=== PATIENT | female | born 1945 | race Caucasian/White ===

== ENCOUNTER 2020-01-13 16:47 | Emergency (ER) | payer MEDICARE, BC, SELFPAY ==
[2020-01-13 17:01] VITALS: BP 154/94; PULSE 123; RESP 20; O2SAT 99
--- NOTE | 2020-01-13 17:08 | ED.EAR ---
HPI - Ear Problem General Chief complaint: Ear Stated complaint: ears ringing Time Seen by Provider: 01/13/20 17:08 Source: patient and RN notes reviewed Mode of arrival: ambulatory Limitations: no limitations History of Present Illness HPI Narrative: 74-year-old female presents with concern for tinnitus bilaterally. Reports it worsened 2 hours ago while she was carrying groceries up and down the steps. Reports she felt hot and then had worsening ringing in her ears. Reports she has had ringing in her ears for a long time . She denies any ear pain, ear drainage, decreased hearing, nasal congestion, rhinorrhea, fever, cough, shortness of breath. She is concerned her tinnitus is related to high blood pressure. Reports she has been off her high blood pressure medicine per her doctor because the medicine made her blood pressure too low. Reports she tried calling her doctor today and was unable to get an appointment. MD Complaint: other (Tinnitus) Related Data Home Medications Medication Instructions Recorded Confirmed levothyroxine 01/13/20 simvastatin mg 01/13/20 Allergies Allergy/AdvReac Type Severity Reaction Status Date / Time ciprofloxacin Allergy Severe Swelling Verified 03/02/19 15:22 nitrofurantoin Allergy Unknown RASH Verified 12/01/17 16:34 Review of Systems Review of Systems: Narrative: CONSTITUTIONAL: Denies malaise, chills, sweats, or fever. EYES: Denies visual changes, redness, or discharge. ENT: Denies rhinorrhea, congestion, sinus pain, otalgia or sore throat. Reports bilateral tinnitus CARDIOVASCULAR: Denies chest pain, palpitations, or edema. RESPIRATORY: Denies cough or dyspnea. MUSCULOSKELETAL: Denies myalgia. NEUROLOGIC: Denies numbness, weakness, or headache. All systems reviewed & are unremarkable except as noted in HPI and below PMFSH Comments At time of signature, agree with nursing past medical, surgical, social and family history. There is no relevant family history pertinent to the presenting complaint Exam Narrative: Exam Narrative: GENERAL: Well-appearing, well-nourished, and in no acute distress. HEAD: Normocephalic, atraumatic. EYES: PERRLA, conjunctivae clear, and EOMI. No nystagmus. ENT: Nares clear, turbinates pink, no rhinorrhea or epistaxis. Mucous membranes moist. TM pearly garvey with sharp light reflex bilaterally; no tragal tenderness. Oropharynx without erythema or lesions. Tonsils not enlarged and without exudate. Negative Rinne & Pearce test NECK: Supple. CHEST: No respiratory distress. Clear to auscultation. No bony deformities, no asymmetry. Speaks in full sentences. HEART: Regular rate and rhythm. No murmur heard. SKIN: Warm, dry, no rash. NEURO: Alert and oriented x3. No focal deficits. PSYCH: Normal mood and affect Course Course Emergency Course: Patient is aware of diagnosis, understands and agrees to treatment plan. Anticipatory guidance given. Patient agrees to follow-up as directed and is aware of reasons to seek care at the emergency department. Portions of this record may have been created with voice recognition software Vital Signs Vital signs: Vital Signs Pulse Rate 123 H 01/13/20 17:01 Respiratory Rate 20 01/13/20 17:01 Blood Pressure 154/94 H 01/13/20 17:01 Pulse Oximetry 99 01/13/20 17:01 Pulse Rate 123 H 01/13/20 17:01 Respiratory Rate 20 01/13/20 17:01 Blood Pressure 154/94 H 01/13/20 17:01 Pulse Oximetry 99 01/13/20 17:01 Reviewed. Patient has history of hypertension Medical Decision Making MDM Narrative Medical decision making narrative: Exam findings show no acute concerns or changes; patient is non-toxic appearing and is in no distress. Patient is appropriate for outpatient treatment and follow-up. Vital Signs Vital Signs: Vital Signs Pulse Rate 123 H 01/13/20 17:01 Respiratory Rate 20 01/13/20 17:01 Blood Pressure 154/94 H 01/13/20 17:01 Pulse Oximetry 99 01/13/20 17:01 Pulse Rate 123
== END 2020-01-13 17:31 | disposition home or self-care (01) ==
PROVIDERS: Emergency Provider Nurse Practitioner; PCP Family Medicine
DX: H93.13 Tinnitus, bilateral (principal); E78.00 Pure hypercholesterolemia, unspecified; E03.9 Hypothyroidism, unspecified
CPT/HCPCS: 99211; G0463

== ENCOUNTER 2020-02-10 12:10 | Outpatient (CLI) | payer MEDICARE, BC, SELFPAY ==
--- NOTE | ~2020-02-10 | MMUS_ITS ---
EXAMINATION: MM diagnostic marciano RT w kurtis, US breast RT limited HISTORY: Follow-up right breast asymmetries and calcifications TECHNIQUE: Additional 3-D tomosynthesis images of the right breast were performed and synthetic 2-D i mages were generated. CAD analysis was submitted and interpreted. High resolution right breast ultras ound was performed. COMPARISON: Comparison to multiple prior studies sequentially, with oldest reviewed study dated 12/23. FINDINGS: MAMMOGRAPHIC FINDINGS: The breasts are heterogenously dense, which may obscure small masses. There are multiple nodular dens ities in the periareolar location of the right breast which are obscured by dense fibroglandular tiss ue. There are multiple punctate calcifications in the periareolar region, many of which appear to lay er on the medial lateral view, consistent with benign milk of calcium. ULTRASOUND: Right breast ultrasound: There are multiple cysts in the periareolar location of the right breast, largest measuring 9 mm at 1 2:00. There is a 7 mm cyst at 9:00 and a 4 mm cyst at 12:00 in the periareolar location. There are mu ltiple mildly prominent ducts in this region. No suspicious masses to suggest malignancy. IMPRESSION: 1. No evidence for malignancy in the right breast. Benign findings. 2. Routine yearly screening mammogram and regular clinical breast examination are recommended. BI-RADS Category 2: Benign finding(s). Reviewed, dictated and finalized at location A. IMPRESSION: 1. No evidence for malignancy in the right breast. Benign findings. 2. Routine yearly screening mammogram and regular clinical breast examination a re recommended. BI-RADS Category 2: Benign finding(s).
== END 2020-02-10 12:11 | disposition home or self-care (01) ==
LOC: ANHIMG 12:12
PROVIDERS: PCP Family Medicine; Visit Provider Family Medicine
DX: R92.8 Other abnormal and inconclusive findings on diagnostic imaging of breast (principal)
CPT/HCPCS: 76642; 77061; 77065; G0279

== ENCOUNTER → 2020-12-14 09:34 | Outpatient (CLI) | payer MEDICARE, BC, SELFPAY ==
--- NOTE | ~2020-12-14 | MMUS_ITS ---
EXAMINATION: MM diagnostic marciano BI w kurtis, US breast BI complete HISTORY: Left nipple discharge TECHNIQUE: Additional 3-D tomosynthesis images of the breasts were performed and synthetic 2-D images were generated. CAD analysis was submitted and interpreted. High resolution complete bilateral breas t ultrasound was performed. COMPARISON: Comparison to multiple prior studies sequentially, with oldest reviewed study dated 12/23. BREAST PARENCHYMAL COMPOSITION: The breasts are heterogenously dense, which may obscure small masses FINDINGS: MAMMOGRAPHIC FINDINGS: There is a cluster of indeterminate calcifications in the upper outer quadrant of the left breast whi ch may be slightly more prominent in number and size than prior examination, although this could be r elated to technique. There are no new masses or architectural distortion in either breast. No mammogr aphic evidence for malignancy in the left breast. Bilateral breast asymmetries are stable. ULTRASOUND: Complete bilateral breast ultrasound including all 4 quadrants: There are multiple simple and complic ated cysts scattered throughout both breasts, largest on the right measuring 5 mm in largest on the l eft measuring 1 cm. No suspicious sonographic masses to suggest malignancy IMPRESSION: 1. Probable benign cluster of calcifications upper outer quadrant of the right breast. No evidence fo r malignancy in the left breast. Recommend follow-up clinical management for nipple discharge. 2. Recommend 6 month follow-up diagnostic right mammogram. BI-RADS category 3, probably benign findings. Reviewed, dictated and finalized at location A. IMPRESSION: 1. Probable benign cluster of calcifications upper outer quadrant of the right breast. No evidence for malignancy in the left breast. Recommend follow-up clin ical management for nipple discharge. 2. Recommend 6 month follow-up diagnostic right mammogram. BI-RADS category 3, probably benign findings.
== END ==
PROVIDERS: PCP Family Medicine; Visit Provider Family Medicine
DX: N64.52 Nipple discharge (principal); R92.8 Other abnormal and inconclusive findings on diagnostic imaging of breast
CPT/HCPCS: 76641; 77062; 77066; G0279

== ENCOUNTER 2021-01-05 10:28 | Outpatient (CLI) | payer MEDICARE, BC, SELFPAY ==
--- NOTE | ~2021-01-05 | MR_ITS ---
MR breast BI wo/w con 01/06/2021 15:50 CDT INDICATION: Left nipple discharge TECHNIQUE: MRI of the breasts perform using standard protocol pre-and post IV contrast with the follo wing sequences: Axial T2 STIR, axial T1, axial vibrant T1 with fat suppression precontrast and multip hasic postcontrast. COMPARISON: Mammogram dated 12/15/2019 FINDINGS: Right breast: There are no abnormalities on the precontrast sequences. There is moderate ba ckground parenchymal enhancement. There are multiple small cysts. There are clumps areas of nonmassli ke enhancement in the lower outer quadrant of the right breast which are likely benign. No evidence o f signal abnormalities in the axillary or internal mammary node distributions. LEFT BREAST: No signal abnormalities on precontrast sequences. There is moderate background parenchy mal enhancement. There are multiple small cysts. No enhancing lesions following contrast administrati on. No areas of enhancement meeting threshold criteria on CAD analysis. No evidence of signal abno rmalities in the axillary or internal mammary node distributions.] IMPRESSION: 1: Clumped nonmass-like enhancement lower outer quadrant of the right breast, likely benign. Moderate bilateral background parenchymal enhancement. No findings to explain left nipple discharge. BI-RADS CATEGORY 3-PROBABLY BENIGN FINDING RECOMMENDATION: Six-month follow-up diagnostic right mammogram and MRI recommended. Reviewed, dictated and finalized at location A. IMPRESSION: 1: Clumped nonmass-like enhancement lower outer quadrant of the right breast, l ikely benign. Moderate bilateral background parenchymal enhancement. No finding s to explain left nipple discharge. BI-RADS CATEGORY 3-PROBABLY BENIGN FINDING RECOMMENDATION: Six-month follow-up diagnostic right mammogram and MRI recommen ded.
[2021-01-05 11:24] LABS: Estimated Glomerular Filt Rate > 60
== END 2021-01-05 10:29 | disposition home or self-care (01) ==
LOC: ANHIMG 10:30
PROVIDERS: PCP Family Medicine; Visit Provider Family Medicine
DX: N64.52 Nipple discharge (principal); R92.8 Other abnormal and inconclusive findings on diagnostic imaging of breast
CPT/HCPCS: 77049; A9577; C8908

== ENCOUNTER 2021-01-25 13:42 | Outpatient (CLI) | payer MEDICARE, BC, SELFPAY ==
--- NOTE | ~2021-01-25 | MM_ITS ---
The patient presented for ductogram for occasional minimal bloody left nipple discharge. No breast discharge could be induced with manual compression of the breast. As result, the procedure could not be performed. Reviewed, dictated and finalized at location A.
== END 2021-01-25 13:43 | disposition home or self-care (01) ==
LOC: ANHIMG 13:42
PROVIDERS: PCP Family Medicine; Visit Provider Surgery
DX: N64.52 Nipple discharge (principal); Z53.8 Procedure and treatment not carried out for other reasons
CPT/HCPCS: 99199